=== PATIENT | female | born 1970 | race American Indian/Alaskan Native ===

== ENCOUNTER 2018-01-07 09:20 | Day surgery (SDC) | payer MEDICARE, MEDICAID ==
[2018-01-07] MEDS ORDERED: Sodium Chloride 0.9% 1,000 ML IV SCH (09:45)
[2018-01-07] MEDS ORDERED: ceFAZolin 2 GM in Premix Bag 1 BAG IV ONE (10:15)
[2018-01-07] MEDS: metroNIDAZOLE/Normal Saline 500 MG in Premix Bag 1 BAG IV ONE ×2 (10:44→12:08)
[2018-01-07] MEDS ORDERED: Propofol 200 MG/20 ML SDV ONE (10:46)
[2018-01-07] MEDS ORDERED: Midazolam 1 MG/ML 2 ML SDV ONE (10:46)
[2018-01-07] MEDS ORDERED: fentaNYL 100 MCG/2 ML SDV ONE (10:46)
[2018-01-07 13:46] VITALS: BP 154/77
--- NOTE | 2018-01-08 08:45 | OR ---
DATE OF PROCEDURE: 01/07/2018 PROCEDURE: Exploration of right lvsae-nrb-gajn amputation stump site. FINDINGS: 1. Small amount of fluid sent for culture. 2. No other gross abnormalities. COMPLICATIONS: None. STEWARD/STEWARDESS [employer] CAR: None. ANESTHESIA: MAC. RISKS: Risks, benefits, alternatives, and limitations including, but not limited to infection, bleeding, and reoperation were all explained the patient, who wished to proceed. PROCEDURE IN DETAIL: The patient was placed in supine position. The joss were removed. The patient had 3 areas of mostly clear colored fluid. No evidence of definitive abscess. This was cultured, and then all 3 of these spots were packed with iodoform, gauze after thorough irrigation. Dressings were applied. The patient tolerated the procedure well. Kaz Garcia MD /[id number]
== END 2018-01-07 13:33 | disposition home or self-care (01) ==
LOC: JP.SDS 09:20
PROVIDERS: ATTEND Surgery
DX: T87.43 Infection of amputation stump, right lower extremity (principal); E11.9 Type 2 diabetes mellitus without complications; D64.9 Anemia, unspecified; N19 Unspecified kidney failure; J45.909 Unspecified asthma, uncomplicated; I10 Essential (primary) hypertension; Z88.8 Allergy status to other drugs, medicaments and biological substances
CPT/HCPCS: 12021; 36415; 80048; 81025; 85027; 87070; 87075; 87077; 87186; 87205; J0690; J2250; J2704; J3010; J7040